=== PATIENT | male | born 1995 | race Caucasian/White ===

== ENCOUNTER 2017-01-14 17:16 | Emergency (ER) | payer BC, OTHER ==
[~2017-01-14] VITALS: Ht 182.9 cm; Wt 84.0 kg
[~2017-01-14 17:16] MED LIST: AMOX1TAB43 PO; NCDT7 TD
[2017-01-14 17:27] VITALS: Ht 182.9 cm; Wt 84.0 kg
[2017-01-14] MEDS ORDERED: SODIUM CHLORIDE 0.9% 1000ML 1,000 ML IV STA (19:32)
[2017-01-14] MEDS ORDERED: MoRPHine SULFATE 4 MG/ML 1 ML CARP\\VIAL IV STA (19:32)
[2017-01-14] MEDS ORDERED: ONDANSETRON INJ 2 MG/ML 2 ML VIAL IV STA (19:32)
--- NOTE | 2017-01-14 19:49 | EMERGENCY ROOM VISIT NOTE ---
History First contact with patient: 19:21 Chief Complaint: HEADACHE Stated Complaint: MIGRAINES History of Present Illness The patient is a 21 year old male who presents to the Emergency Room with complaints of headache. The patient states he has had a headache for the last 5 days. 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 He also has a history of carotid thrombus and stenting. The patient states that he gets headaches, typically four headaches each week. He states that this is the most severe headache he has ever had. He states the pain is on the right side of the head. He reports light sensitivity and nausea. He rates his discomfort a 5/10. He denies any fevers or chills. He denies any neck pain or neck stiffness. He denies any pain in his chest or trouble breathing. He denies any visual changes. He denies any numbness, tingling or weakness in the extremities. Review of Systems A 10 system review of systems was completed with positives and pertinent negatives listed in the HPI. Past Medical/Surgical History Medical Problems: (1) AVM (arteriovenous malformation) (2) VSD (ventricular septal defect) Social History Smoking Status: Former Smoker Drug Use: other Marital Status: single Occupation Status: [employer] Current/Historical Medications Scheduled Bupropion (Wellbutrin), 50 MG PO QAM Lamotrigine (Lamictal), 200 MG PO QAM Sertraline (Zoloft), 25 MG PO QAM Trazodone Hcl (Trazodone), 50 MG PO HS Scheduled PRN Oxycodone Ir (Roxicodone Ir), 1 TAB PO Q6 PRN for Pain Allergies Coded Allergies: Clindamycin (Verified Allergy, Mild, rash, 08/08/16) Midazolam (Verified Allergy, Unknown, aggitation, 08/08/16) Physical Exam Vital Signs Date Time Temp Pulse Resp B/P Pulse Ox O2 Delivery O2 Flow Rate FiO2 01/14/17 22:07 79 18 138/82 97 Room Air 01/14/17 21:40 71 18 108/63 99 Room Air 01/14/17 17:27 36.9 107 16 156/96 95 Room Air Physical Exam VITALS: Vitals are noted on the nurse's note and reviewed by myself. Vital signs stable. The patient is afebrile. GENERAL: This is a 21-year-old male, in no acute distress, nondiaphoretic, well- developed well-nourished. SKIN: The skin was without rashes, erythema, edema, or bruising. He does have scarring to the left side of the face. There is no tenting of the skin. Capillary reflex less than 2 seconds. HEAD: Normocephalic atraumatic. EARS: External auditory canals clear, tympanic membranes pearly sarabia without erythema or effusion bilaterally. EYES: Pupils equal round and reactive to light and accommodation. Conjunctivae without injection, sclerae without icterus. Extraocular movements intact. NOSE: Patent, turbinates without inflammation or discharge. No sinus tenderness. MOUTH: Mucous membranes moist. Tonsils are not enlarged. Pharynx without erythema or exudate. Uvula midline. Airway patent. Tongue does not deviate. NECK: Supple without nuchal rigidity. No lymphadenopathy. No thyromegaly. Cervical spine is nontender. No JVD. HEART: Regular rate and rhythm without murmurs gallops or rubs. LUNGS: Clear to auscultation bilaterally without wheezes, rales or rhonchi. No retractions or accessory muscle use. MUSCULOSKELETAL: No muscle atrophy, erythema, or edema noted. Full range of motion without joint tenderness in all extremities. Normal gait. Strength 5/5 throughout. NEURO: Patient was alert and oriented to person place and time. The patient has mild left-sided facial droop which is his baseline secondary to nerve damage from the AVM surgery. No focal neurological deficits. Medical Decision & Procedures ER Provider Diagnostic Interpretation: CT HEAD WITHOUT CONTRAST (CT) CLINICAL HISTORY: Severe headache COMPARISON STUDY: No previous studies for comparison. TECHNIQUE: Axial CT of the brain is performed from the vertex to the skull base. IV contrast was not administered for this examination. CT DOSE: 537.48 mGy.cm FINDINGS: No intra or extra-axial mass lesions are visualized. There is no CT evidence of acute cortical infarction. There is no evidence of midline shift. There is no acute hemorrhage. No calvarial fractures are visualized. There is an apparent stent in the region of the left carotid canal and cavernous left internal carotid. There are tiny radiopaque densities in the region of the posterior ethmoid sinus, and superior orbital apices. There is no evidence of pathologic ventricular dilatation. The hoop driving machine operator helper film reveals possible embolic material in the region of the nasopharynx. There is no evidence of acute sinusitis IMPRESSION: No acute intracranial findings. CT HEAD ANGIO WITH CONTRAST CLINICAL HISTORY: Severe headache. History of facial AVM. TECHNIQUE: CT angiography of the head was performed in a dynamic helical fashion during intravenous administration of 115 cc of Optiray 320. MIP imaging was performed. CT DOSE: COMPARISON STUDY: Noncontrast head CT dated 01/14/2017 FINDINGS: There are no lesion suspicious for aneurysm. There are no major intracranial branch occlusions. The dural venous sinuses appear patent. There are multiple foci of radiopaque embolic material within the nasopharynx and throughout the face particularly on the left. There is a probable carotid stent present. IMPRESSION: 1. Post ablation changes within the base and nasopharynx 2. Patent left internal carotid artery stent 3. No evidence of aneurysm. No evidence of dural venous sinus thrombosis. [~ rep ct add3]] CT NECK ANGIO WITH CONTRAST CLINICAL HISTORY: History of facial AVM. Severe headache. COMPARISON STUDY: No previous studies for comparison. TECHNIQUE: CT angiography was performed from the aortic arch to the skull base. MIP imaging was performed. The patient was scanned in a dynamic helical fashion during intravenous administration of 115 cc of Optiray 320. CT DOSE: 481.64 mGy.cm Technique: CT angiogram of the carotid and vertebral arteries was obtained using intravenous contrast and 3-D reconstruction. NASCET criteria was utilized. Findings: The right carotid revealed no evidence of aneurysm and no evidence of dissection. There is no evidence of hemodynamic significant stenosis. The left carotid revealed no evidence of hemodynamic significant stenosis. There is no evidence of aneurysm. There is no evidence of dissection. There is a patent stent in the region the left carotid canal. There is no evidence of hemodynamically significant vertebral stenosis. There is no evidence of vertebral dissection. There is artifact from extensive radiopaque embolic material present throughout nasopharyngeal and facial vessels. IMPRESSION: 1. No evidence of hemodynamically significant carotid or vertebral artery stenosis. No evidence of dissection. 2. Study compromised secondary to streak artifact from extensive radiopaque embolic material throughout nasopharyngeal and facial vessels Laboratory Results 01/14/17 19:45 Red Blood Count 5.48, Mean Corpuscular Volume 80.3, Mean Corpuscular Hemoglobin 27.2, Mean Corpuscular Hemoglobin Concent 33.9, Mean Platelet Volume 11.0, Neutrophils (%) (Auto) 52.9, Lymphocytes (%) (Auto) 32.4, Monocytes (%) (Auto) 11.4, Eosinophils (%) (Auto) 2.9, Basophils (%) (Auto) 0.2, Neutrophils # (Auto ) 2.96, Lymphocytes # (Auto) 1.81, Monocytes # (Auto) 0.64, Eosinophils # (Auto ) 0.16, Basophils # (Auto) 0.01 01/14/17 19:45 Test 01/14/17 19:45 White Blood Count 5.59 K/uL (4.8-10.8) Red Blood Count 5.48 M/uL (4.7-6.1) Hemoglobin 14.9 g/dL (14.0-18.0) Hematocrit 44.0 % (42-52) Mean Corpuscular Volume 80.3 fL (80-100) Mean Corpuscular Hemoglobin 27.2 pg (25-34) Mean Corpuscular Hemoglobin Concent 33.9 g/dl (32-36) Platelet Count 151 K/uL (130-400) Mean Platelet Volume 11.0 fL (7.4-10.4) Neutrophils (%) (Auto) 52.9 % Lymphocytes (%) (Auto) 32.4 % Monocytes (%) (Auto) 11.4 % Eosinophils (%) (Auto) 2.9 % Basophils (%) (Auto) 0.2 % Neutrophils # (Auto) 2.96 K/uL (1.4-6.5) Lymphocytes # (Auto) 1.81 K/uL (1.2-3.4) Monocytes # (Auto) 0.64 K/uL (0.11-0.59) Eosinophils # (Auto) 0.16 K/uL (0-0.5) Basophils # (Auto) 0.01 K/uL (0-0.2) RDW Standard Deviation 42.5 fL (36.4-46.3) RDW Coefficient of Variation 14.5 % (11.5-14.5) Immature Granulocyte % (Auto) 0.2 % Immature Granulocyte # (Auto) 0.01 K/uL (0.00-0.02) Anion Gap 5.0 mmol/L (3-11) Est Creatinine Clear Calc Drug Dose 136.5 ml/min Estimated GFR () 133.8 Estimated GFR (Non- 115.4 BUN/Creatinine Ratio 16.3 (10-20) Calcium Level 9.2 mg/dl (8.5-10.1) Total Bilirubin 0.6 mg/dl (0.2-1) Aspartate Amino Transf (AST/SGOT) 21 U/L (15-37) Alanine Aminotransferase (ALT/SGPT) 30 U/L (12-78) Alkaline Phosphatase 69 U/L (45-117) Total Protein 7.0 gm/dl (6.4-8.2) Albumin 4.0 gm/dl (3.4-5.0) Globulin 3.0 gm/dl (2.5-4.0) Albumin/Globulin Ratio 1.3 (0.9-2) Medications Administered Medications (Trade) Dose Ordered Sig/Nestor Route Start Time Stop Time Status Last Admin Dose Admin Morphine Sulfate (MoRPHine SULFATE INJ) 4 mg NOW STAT IV 01/14/17 19:32 01/14/17 19:33 DC 01/14/17 20:12 4 MG Ondansetron HCl (Zofran Inj) 4 mg NOW STAT IV 01/14/17 19:32 01/14/17 19:33 DC 01/14/17 20:11 4 MG Prochlorperazine Edisylate (Compazine Inj) 10 mg NOW STAT IV 01/14/17 21:03 01/14/17 21:04 DC 01/14/17 21:32 10 MG Diphenhydramine HCl (Benadryl Inj) 25 mg NOW STAT IV 01/14/17 21:03 01/14/17 21:04 DC 01/14/17 21:32 25 MG ED Course The patient was seen and examined. Previous visits were reviewed. The patient does not have a fever or leukocytosis. He does not have any significant electrolyte abnormalities. CT imaging was obtained as above. There is no acute findings. The patient was initially given 4 mg IV morphine and 4 mg IV Zofran with only minimal improvement in his symptoms. He was then given 10 mg IV Compazine and 25 mg IV Benadryl. He was sleeping and stated he was feeling slightly better. He felt that he was ready to go home. I did discuss the possibility of performing lumbar puncture if this indeed the worst headache of his life but he declines. He did ask for pain medication to have at home. I did review the prescription drug monitoring website. He has not had any narcotics filled recently. The patient should follow-up with neurology for further evaluation and management. He should return with any worsening symptoms. The case was discussed with who agrees with the assessment and treatment plan. Medical Decision The differential diagnosis includes: head or neck trauma, cerebrovascular disorders, intracranial lesions, infection,transient ischemic attack (TIA), CVA , seizure, syncope, intracranial mass, intracranial bleeding and vestibular disorders, among others [place] Drug Monitoring Program Search Results: patient reviewed within database, no issues identified Impression Primary Impression: Headache Departure Information Dispostion Home / Self-Care Condition GOOD Prescriptions Oxycodone Ir (Roxicodone Ir) 5 Mg Tab 1 TAB PO Q6 Y for Pain, #10 TAB For Initial Treatment Prov: Staci Sky PA-C 01/14/17 Referrals [facility] (PCP) Sadi Rosario M.D. Patient Instructions ED Headache Migraine, My [facility] Additional Instructions Oxy IR 1-2 tablets every 4-6 hrs as needed for worse pain. No driving or alcohol use with Oxy IR. Follow-up with [facility] services and/or neurology for further evaluation and management if headaches persist Return with any fevers or worsening symptoms Problem Qualifiers Primary Impression: Headache
[2017-01-14 19:54] LABS: BASO % 0.2 %; BASO ABS # 0.01 K/uL (0-0.2); COMPLETE YES; EOS % 2.9 %; IG% 0.2 %; LYMPH % 32.4 %; LYMPH ABS # 1.81 K/uL (1.2-3.4); MEAN CELL VOLUME 80.3 fL (80-100); MEAN CORPUSCULAR HEMOGLOBIN 27.2 pg (25-34); MEAN CORPUSCULAR HGB CONC 33.9 g/dl (32-36); MONO % 11.4 %; NEUT % 52.9 %; PLATELET COUNT 151 K/uL (130-400); RED BLOOD COUNT 5.48 M/uL (4.7-6.1); WHITE BLOOD COUNT 5.59 K/uL (4.8-10.8)
[2017-01-14 20:16] LABS: BUN/CREATININE RATIO 16.3 (10-20); CALCIUM 9.2 mg/dl (8.5-10.1); CREATININE 0.94 mg/dl (0.60-1.40); POTASSIUM 4.1 mmol/L (3.5-5.1)
[2017-01-14 20:18] LABS: ALB/GLOB RATIO 1.3 (0.9-2)
--- NOTE | 2017-01-14 20:42 | DIAGNOSTIC IMAGING REPORT ---
CT HEAD WITHOUT CONTRAST (CT) CLINICAL HISTORY: Severe headache COMPARISON STUDY: No previous studies for comparison. TECHNIQUE: Axial CT of the brain is performed from the vertex to the skull base. IV contrast was not administered for this examination. CT DOSE: 537.48 mGy.cm FINDINGS: No intra or extra-axial mass lesions are visualized. There is no CT evidence of acute cortical infarction. There is no evidence of midline shift. There is no acute hemorrhage. No calvarial fractures are visualized. There is an apparent stent in the region of the left carotid canal and cavernous left internal carotid. There are tiny radiopaque densities in the region of the posterior ethmoid sinus, and superior orbital apices. There is no evidence of pathologic ventricular dilatation. The weapons mechanic film reveals possible embolic material in the region of the nasopharynx. There is no evidence of acute sinusitis IMPRESSION: No acute intracranial findings. Electronically signed by: Mane Reynolds M.D. 01/14/2017 8:41 PM Dictated Date/Time: 01/14/2017 8:37 PM
[2017-01-14] MEDS ORDERED: OPTIRAY 320 IV PRN (21:00)
[2017-01-14] MEDS ORDERED: DiphenhydrAMINE HCL 50 MG/ML VIAL IV STA (21:03)
[2017-01-14] MEDS ORDERED: PROCHLORPERAZINE 5 MG/ML 2 ML VIAL IV STA (21:03)
--- NOTE | 2017-01-14 22:14 | DIAGNOSTIC IMAGING REPORT ---
CT HEAD ANGIO WITH CONTRAST CLINICAL HISTORY: Severe headache. History of facial AVM. TECHNIQUE: CT angiography of the head was performed in a dynamic helical fashion during intravenous administration of 115 cc of Optiray 320. MIP imaging was performed. CT DOSE: COMPARISON STUDY: Noncontrast head CT dated 01/14/2017 FINDINGS: There are no lesion suspicious for aneurysm. There are no major intracranial branch occlusions. The dural venous sinuses appear patent. There are multiple foci of radiopaque embolic material within the nasopharynx and throughout the face particularly on the left. There is a probable carotid stent present. IMPRESSION: 1. Post ablation changes within the base and nasopharynx 2. Patent left internal carotid artery stent 3. No evidence of aneurysm. No evidence of dural venous sinus thrombosis. Electronically signed by: Mnae Reynolds M.D. 01/14/2017 10:12 PM Dictated Date/Time: 01/14/2017 10:08 PM
--- NOTE | 2017-01-14 22:17 | DIAGNOSTIC IMAGING REPORT ---
CT NECK ANGIO WITH CONTRAST CLINICAL HISTORY: History of facial AVM. Severe headache. COMPARISON STUDY: No previous studies for comparison. TECHNIQUE: CT angiography was performed from the aortic arch to the skull base. MIP imaging was performed. The patient was scanned in a dynamic helical fashion during intravenous administration of 115 cc of Optiray 320. CT DOSE: 481.64 mGy.cm Technique: CT angiogram of the carotid and vertebral arteries was obtained using intravenous contrast and 3-D reconstruction. NASCET criteria was utilized. Findings: The right carotid revealed no evidence of aneurysm and no evidence of dissection. There is no evidence of hemodynamic significant stenosis. The left carotid revealed no evidence of hemodynamic significant stenosis. There is no evidence of aneurysm. There is no evidence of dissection. There is a patent stent in the region the left carotid canal. There is no evidence of hemodynamically significant vertebral stenosis. There is no evidence of vertebral dissection. There is artifact from extensive radiopaque embolic material present throughout nasopharyngeal and facial vessels. IMPRESSION: 1. No evidence of hemodynamically significant carotid or vertebral artery stenosis. No evidence of dissection. 2. Study compromised secondary to streak artifact from extensive radiopaque embolic material throughout nasopharyngeal and facial vessels Electronically signed by: Maen Reynolds M.D. 01/14/2017 10:16 PM Dictated Date/Time: 01/14/2017 10:13 PM
[2017-01-14] MEDS ORDERED: OXYCODONE IR HOME PACK PO ONE (22:30)
[2017-01-14] MEDS ORDERED: OXYC1TAB3 PO (22:30)
[2017-01-14 23:12] VITALS: BP 131/79; PULSE 95; TEMP 36.9; O2SAT 99
[2017-01-29] MEDS ORDERED: KETO10TA PO (14:26)
[2017-01-29] MEDS ORDERED: TRAZ50TA35 PO (16:12)
[2017-01-29] MEDS ORDERED: LAMO200T38 PO (16:13)
[2017-01-29] MEDS ORDERED: BUPR-83 PO (16:14)
[2017-01-29] MEDS ORDERED: SERT25TA PO (16:15)
== END 2017-01-14 23:14 | disposition home or self-care (01) ==
LOC: C.EDB 17:17
DX: R51 Headache (principal); H53.8 Other visual disturbances; R11.0 Nausea; Z87.891 Personal history of nicotine dependence; Q27.30 Arteriovenous malformation, site unspecified

== ENCOUNTER 2017-01-26 14:07 | Emergency (ER) | payer OTHER ==
[~2017-01-26] VITALS: Ht 182.9 cm; Wt 83.6 kg
[~2017-01-26 14:07] MED LIST changes: -AMOX1TAB43 PO; -NCDT7 TD; +OXYC1TAB3 PO
[2017-01-26 14:14] VITALS: TEMP 36.6; Ht 182.9 cm; Wt 83.6 kg
[2017-01-26] MEDS ORDERED: OXYC1TAB3 PO (15:17)
--- NOTE | 2017-01-26 15:19 | EMERGENCY ROOM VISIT NOTE ---
History First contact with patient: 14:22 Chief Complaint: HEADACHE Stated Complaint: MIRGRAINE History of Present Illness The patient is a 21 year old male who presents to the Emergency Room via private vehicle with complaints of "headache". The patient has had a headache for the past 2 days. He states that he was seen here on January 14, where he had a thorough workup for a new onset headache. He states that he was discharged home with oxycodone and been doing well with only mild headaches until 3 days ago he started again. He is concerned that maybe from a potential infection in the back of his mouth. He states that he is making a dentist appointment in the near future. He states that at 3 AM, 2 nights ago he awoke with a severe headache similar to when he presented here on the . He is attempting to establish an appointment with a neurologist as well. He states these headaches do seem to be new, however there has been no worsening or change or new onset of symptoms since he was evaluated here the . He states he is here today because he was seen at [facility] who indicated they could not refill the oxycodone of which she stated provided him relief. He notes that the headache is usually on the right side of his head near the right buddhist and right ear. He states is the same location as when he was seen here on the . His light sensitivity in the right eye, he denies fevers, chills, weakness or speech troubles. Review of Systems A complete 10-point Review of Systems was discussed with the patient, with pertinent positives and negatives listed in the History of Present Illness. All remaining Review of Systems questions can be considered negative unless otherwise specified. Past Medical/Surgical History Medical Problems: (1) AVM (arteriovenous malformation) (2) VSD (ventricular septal defect) Social History Smoking Status: Never Smoker Drug Use: other Marital Status: single Occupation Status: [employer] Current/Historical Medications Scheduled Bupropion (Wellbutrin), 50 MG PO QAM Lamotrigine (Lamictal), 200 MG PO QAM Sertraline (Zoloft), 25 MG PO QAM Trazodone Hcl (Trazodone), 50 MG PO HS Scheduled PRN Ketorolac Tromethamine (Toradol), 1 TAB PO Q6H PRN for Pain Oxycodone Ir (Roxicodone Ir), 1-2 TAB PO Q4H PRN for Pain Allergies Coded Allergies: Zolpidem (Unverified Allergy, Severe, anxiety, 01/26/17) Clindamycin (Verified Allergy, Mild, rash, 01/26/17) Midazolam (Verified Allergy, Unknown, aggitation, 01/26/17) Physical Exam Vital Signs Date Time Temp Pulse Resp B/P Pulse Ox O2 Delivery O2 Flow Rate FiO2 01/26/17 15:38 67 18 117/72 99 01/26/17 14:14 36.6 97 18 131/95 100 Room Air Physical Exam VITAL SIGNS - Vital signs and nursing notes were reviewed. Afebrile, normotensive, non-tachycardic and is saturating well on room air 100%. GENERAL -21-year-old male appearing his stated age who is in no acute distress. Communicates well with provider and answers questions appropriately. SKIN - Without rashes. No petechial rashes. HEAD - NC/AT. EYES - PERRL with EOMI bilaterally. Sclera anicteric. Palpebral conjunctiva pink and moist with no injection noted. EARS - No deformities of external structures noted on gross examination bilaterally. No pain elicited with palpation of the tragus bilaterally. External auditory canals without discharge or otorrhea. Tympanic membranes pearly sarabia without retraction or bulging. No fluid or purulent material visualized behind the TM. Handle of malleus, umbo, cone of light, pars tensa/ flaccid all easily visualized. NOSE - Midline and without cyanosis. No epistaxis or purulent drainage noted. Septum midline without deviation or septal hematoma noted. MOUTH/OROPHARYNX - Without perioral cyanosis. Buccal mucosa pink and moist and without leukoplakia. Tongue midline with equal elevation of palate bilaterally. No tonsillar hypertrophy, erythema, or exudates noted. Fair dentition noted. No evidence of intraoral infection. NECK - Neck with FROM. Supple to palpation. No lymphadenopathy noted. No nuchal rigidity. No meningismus or signs of encephalitis. LUNGS - Chest wall symmetric without accessory muscle use, intercostals retractions, or central cyanosis. Normal vesicular breath sounds CTA B/L. No wheezes, rales, or rhonchi appreciated. CARDIAC - RRR with S1/S2. No murmur, rubs, or gallops appreciated. EXTREMITIES - No clubbing or peripheral cyanosis. No pretibial edema present. Vascular intact. +5/5 strength noted in UE/LE bilaterally. NEUROLOGIC - Cranial nerves II through XII grossly intact. Sensory intact to light touch throughout. Patellar reflexes +2/4. PSYCH - A&Ox3 and cooperates fully with examiner. Pt is very pleasant and interacts well with examiner. Medical Decision & Procedures Medical Decision Patient was seen and evaluated as above. After obtaining a thorough history and physical examination an extensive discussion was had with the patient regarding his current condition versus when he presented here on the . We thoroughly reviewed his imaging and lab work at that time. The patient is experiencing identical symptoms to when he was here in the , and this is not the worst headache of his life. He states he currently he is experiencing a very minimal headache he would potentially just like a refill of the oxycodone temporarily until he can see the neurologist for definitive management. I did thoroughly review the CT scan of the head with contrast and without as well as the neck with contrast. The angiograms were unremarkable for acute process. His lab work also did not reveal any emergent process. The patient likely appears well and does not have any neurologic deficits. I do believe the patient can be discharged home with a short prescription but did want to help expedite his neurologic appointment by having our case specialist assist by calling to establish appointment Saturday. He was educated upon worrisome symptoms which to return, had questions or purulent discharge and was discharged home in good condition. In the evaluation and treatment of this patient, the following differential diagnoses were considered: Concussion, Contrecoup Injury, Brain Tumor, Depression, Encephalitis, Hypothyroidism, Meningitis, CVA, TIA, Migraine, Cluster Headache, Intracranial Abnormality, Intracranial Hemorrhage, Subdural Hematoma, Subarachnoid Hemorrhage, Hydrocephalus. [place] Drug Monitoring Program Search Results: patient reviewed within database, no issues identified Impression Primary Impression: Headache Departure Information Dispostion Home / Self-Care Condition GOOD Prescriptions Oxycodone Ir (Roxicodone Ir) 5 Mg Tab 1-2 TAB PO Q4H Y for Pain, #15 TAB For Initial Treatment Prov: Oscar Rueda PA-C 01/26/17 Referrals [facility] (PCP) Yves Kuo M.D. (MEDICINE) Patient Instructions My [facility] Additional Instructions You have been treated in the Emergency Department for a Headache. You have been prescribed Oxy IR to be used for pain control. This is a narcotic medication. You cannot drive or consume alcohol while on this medicine. This medicine should only be used for pain that cannot be controlled with over-the- counter pain medicines. For pain control, you can use the following [id number] medicines (if >12 yo): - Regular strength (325mg/tab) Tylenol (acetaminophen) 2 tabs every 4-6 hours as needed. Do not exceed 12 tablets in a 24 hour period. Avoid taking more than 3 grams (3000 mg) of Tylenol per day. This includes any other sources of acetaminophen you may take on a regular basis. - Regular strength (200 mg/tab) Advil (ibuprofen) 1-2 tabs every 4-6 hours as needed. Do not exceed a dose of 3200 mg per day. (DO NOT TAKE WITH THE TORADOL) You should relax in a quiet, dark place for the rest of the day. Avoid any possible triggers including: cigarette smoke, caffeine, nicotine, chocolate, wine, beer, loud noises or music, or bright lights. Our case specialist are going to call a neurologist for you first thing Saturday. Please expect their call Saturday. If you do not hear from us by Saturday evening please call [phone]. Return to the Emergency Department if your current symptoms worsen despite treatment course outlined above, or if you develop any of the following symptoms : intractable pain despite aforementioned treatment course, visual disturbances , loss of vision, unilateral weakness or facial drooping, slurring of speech, loss of coordination, or loss of consciousness. Please return to the emergency department with any new/concerning symptoms
[2017-01-26 15:38] VITALS: BP 117/72; PULSE 67; O2SAT 99
[2017-01-29] MEDS ORDERED: KETO10TA PO (14:26)
[2017-01-29] MEDS ORDERED: TRAZ50TA35 PO (16:12)
[2017-01-29] MEDS ORDERED: LAMO200T38 PO (16:13)
[2017-01-29] MEDS ORDERED: BUPR-83 PO (16:14)
[2017-01-29] MEDS ORDERED: SERT25TA PO (16:15)
== END 2017-01-26 15:40 | disposition home or self-care (01) ==
LOC: C.EDB 14:10 → C.EDD 15:40
DX: R51 Headache (principal); Z79.899 Other long term (current) drug therapy

== ENCOUNTER 2017-01-29 17:43 | Emergency (ER) | payer OTHER ==
[~2017-01-29] VITALS: Ht 182.9 cm; Wt 84.1 kg
[~2017-01-29 17:43] MED LIST changes: +BUPR-83 PO; +KETO10TA PO; +LAMO200T38 PO; +SERT25TA PO; +TRAZ50TA35 PO
[2017-01-29 17:59] VITALS: TEMP 36.7; Ht 182.9 cm; Wt 84.1 kg
[2017-01-29] MEDS ORDERED: DiphenhydrAMINE HCL 50 MG/ML VIAL IM STA (18:48)
[2017-01-29] MEDS ORDERED: PROCHLORPERAZINE 5 MG/ML 2 ML VIAL IM STA (18:48)
[2017-01-29] MEDS ORDERED: OXYCODONE IR HOME PACK PO STA (20:53)
[2017-01-29] MEDS ORDERED: METH4PAK PO (20:54)
[2017-01-29] MEDS ORDERED: OXYC1TAB3 PO (20:54)
--- NOTE | 2017-01-29 20:56 | EMERGENCY ROOM VISIT NOTE ---
History First contact with patient: 18:15 Chief Complaint: HEADACHE Stated Complaint: MIGRAINES History of Present Illness The patient is a 21 year old male who presents to the Emergency Room via private vehicle with complaints of "migraines". The patient was in the emergency department recently 2 times for previous. The patient states that today he was to see the dentist and [facility]. He states that he was last seen here on January 26, and since then has had waxing and waning of the same type of headache he presented with before. He notes this is not the worse headache of his life. He states the dentist did not offer any concern for dental ideologies. He states that he has not been able to follow-up with neurology as he had to have an official referral from [facility]. He states that he was there today. He is waiting a call from the neurologist at this time. He states he came here because he is not sure where to turn. He states that the OxyIR was helping him but he has now run out. He states that the headache he is expressing at this time is bad, but not the worst of his life. He states that he has taken Toradol today. Since he was seen here on the first, he developed a headache all day Saturday, and then took 2 of the OxyIR with relief. He states that it is been transient since then. He missed class yesterday because of his headaches. He is had trouble sleeping at night. He did take Tylenol PM recently which helped him sleep. The patient states that the current headache he rates as an 8-9/10 on the right side of his head which is identical to previous headaches. He denies any recent trauma or injury to the head, nausea, vomiting, fevers, chills. He states that he does have light and noise sensitivity. He has trouble watching TV and using the computer secondary to irritation. This current headache began 1.5 hours ago and was of gradual onset. Review of Systems A complete 10-point Review of Systems was discussed with the patient, with pertinent positives and negatives listed in the History of Present Illness. All remaining Review of Systems questions can be considered negative unless otherwise specified. Past Medical/Surgical History Medical Problems: (1) AVM (arteriovenous malformation) (2) VSD (ventricular septal defect) Family History No pertinent at this time. Social History Smoking Status: Former Smoker Drug Use: other Marital Status: single Occupation Status: [employer] student Current/Historical Medications Scheduled Bupropion (Wellbutrin), 50 MG PO QAM Lamotrigine (Lamictal), 200 MG PO QAM Methylprednisolone (Medrol Dosepak), 0 PO DAILY Sertraline (Zoloft), 25 MG PO QAM Trazodone Hcl (Trazodone), 50 MG PO HS Scheduled PRN Ketorolac Tromethamine (Toradol), 1 TAB PO Q6H PRN for Pain Oxycodone Ir (Roxicodone Ir), 1-2 TAB PO Q4H PRN for Pain Oxycodone Ir (Roxicodone Ir), 1-2 TAB PO Q4H PRN for Pain Allergies Coded Allergies: Zolpidem (Unverified Allergy, Severe, anxiety, 01/29/17) Clindamycin (Verified Allergy, Mild, rash, 01/29/17) Midazolam (Verified Allergy, Unknown, aggitation, 01/29/17) Physical Exam Vital Signs Date Time Temp Pulse Resp B/P Pulse Ox O2 Delivery O2 Flow Rate FiO2 01/29/17 21:03 76 16 118/59 98 01/29/17 20:42 76 16 118/59 98 Room Air 01/29/17 17:59 36.7 89 18 123/81 96 Room Air Physical Exam VITAL SIGNS - Vital signs and nursing notes were reviewed. Patient is afebrile , normotensive, non-tachycardic and is saturating well on room air 96%. GENERAL -21-year-old male appearing his stated age who is in no acute distress. Communicates well with provider and answers questions appropriately. SKIN - Without rashes. No petechial rashes. HEAD - NC/AT. EYES - Sclera anicteric. Palpebral conjunctiva pink and moist with no injection noted. MOUTH/OROPHARYNX - Without perioral cyanosis. NECK - Neck with FROM. No Meningismus. NEUROLOGIC - Cranial nerves II through XII grossly intact. PSYCH - A&Ox3 and cooperates fully with examiner. Pt is very pleasant and interacts well with examiner. Medical Decision & Procedures Medications Administered Medications (Trade) Dose Ordered Sig/Nestor Route Start Time Stop Time Status Last Admin Dose Admin Diphenhydramine HCl (Benadryl Inj) 50 mg NOW STAT IM 01/29/17 18:48 01/29/17 18:49 DC 01/29/17 19:12 50 MG Prochlorperazine Edisylate (Compazine Inj) 10 mg NOW STAT IM 01/29/17 18:48 01/29/17 18:49 DC 01/29/17 19:12 10 MG Oxycodone HCl (Roxicodone Immediate Rel 5MG Home Pack) 1 homepack UD STAT PO 01/29/17 20:53 01/29/17 20:54 DC 01/29/17 21:03 [facility] Medical Decision Patient was seen and evaluated as above. I am familiar with the patient case as I treated him previously. The patient presents essentially requesting a refill of the oxycodone prescription. He was checked in the [employer] drug monitoring system and no red flags were identified. I do believe the patient is experiencing headaches. The patient was to follow up with neurology from previous visit but it appears that he is not been able to follow up yet at this point. apprenticeship training representative did also talk with me and state that they're trying everything they can to help him with the appointment. I talked with the patient and there was no change in his headache from previous. He had no neurologic deficits on exam. There is no concerning presentation to these headaches at this time. I do not believe that continued opioid use is appropriate for the treatment of headaches, but as a bridge to help him until he can be seen by neurologist for further evaluation and management do believe that it may be appropriate. The case was thoroughly discussed with my attending. I did discussthe case with the communication technician neurologist, Dr. Ortiz, who offered that I may use a Medrol Dosepak, and have case management call to establish the earliest appointment for the patient. I do believe this is appropriate and although similar was tried on previous visit certainly believe that it is appropriate. The patient will be discharged home with a short term supply of OxyIR as well as a Medrol Dosepak. For his symptoms today, he already taken Toradol therefore I decided to try intramuscular Phenergan and Benadryl. This was 25 and 50 mg respectively. Patient was reevaluated and was experiencing excellent relief. For the short-term, he will be discharged home on OxyIR as well as a Medrol Dosepak and is to follow-up with neurology. I again do not believe that long-term prescriptions of OxyIR for any opiates are appropriate, nor do I want to create serotonin syndrome. The patient was thoroughly educated upon the plan of care, and he is to expect a phone call tomorrow. If he does not receive a phone call from either our director of casework department or neurology he is to return. He was educated upon worrisome symptoms which to return, had questions answered prior to discharge, and was discharged home in good condition. In the evaluation and treatment of this patient, the following differential diagnoses were considered: Migraine Headache, Intracranial Hemorrhage, Subdural Hematoma, Subarachnoid Hemorrhage, Cerebral Aneurysm, Temporal/Giant Cell Arteritis, Tension Headache, Meningitis, Encephalitis, or Hydrocephalus. [place] Drug Monitoring Program Search Results: patient reviewed within database, no issues identified Impression Primary Impression: Headache Departure Information Dispostion Home / Self-Care Condition GOOD Prescriptions Oxycodone Ir (Roxicodone Ir) 5 Mg Tab 1-2 TAB PO Q4H Y for Pain, #15 TAB For Initial Treatment Prov: Oscar Rueda PA-C 01/29/17 Methylprednisolone (MEDROL DOSEPAK) 4 Mg Alexis 0 PO DAILY, #1 PKT Prov: Oscar Rueda PA-C 01/29/17 Referrals [facility] (PCP) Camryn Rascon D.O. Patient Instructions My [facility] Additional Instructions You have been treated in the Emergency Department for a Headache. You have been prescribed Oxy IR to be used for pain control. This is a narcotic medication. You cannot drive or consume alcohol while on this medicine. This medicine should only be used for pain that cannot be controlled with over-the- counter pain medicines. You have been prescribed a Medrol Dosepak. Take this medication as prescribed. You should take the COMPLETE 6-day course of this medication. This is an anti- inflammatory medicine that will help to minimize your symptoms. For pain control, you can use the following [id number] medicines (if >12 yo): - Regular strength (325mg/tab) Tylenol (acetaminophen) 2 tabs every 4-6 hours as needed. Do not exceed 12 tablets in a 24 hour period. Avoid taking more than 4 grams (4000 mg) of Tylenol per day. This includes any other sources of acetaminophen you may take on a regular basis. - Regular strength (200 mg/tab) Advil (ibuprofen) 1-2 tabs every 4-6 hours as needed. Do not exceed a dose of 3200 mg per day. You should relax in a quiet, dark place for the rest of the day. Avoid any possible triggers including: cigarette smoke, caffeine, nicotine, chocolate, wine, beer, loud noises or music, or bright lights. As we discussed you should be expecting a phone call from the neurologist office and from our department regarding an appointment for neurologist. If you do not receive a phone call back tomorrow midafternoon please call the emergency department back at [phone] Return to the Emergency Department if your current symptoms worsen despite treatment course outlined above, or if you develop any of the following symptoms : intractable pain despite aforementioned treatment course, visual disturbances , loss of vision, unilateral weakness or facial drooping, slurring of speech, loss of coordination, or loss of consciousness. Please return to emergency department with any new/concerning symptoms.
[2017-01-29 21:03] VITALS: BP 118/59; PULSE 76; O2SAT 98
== END 2017-01-29 21:04 | disposition home or self-care (01) ==
LOC: C.EDB 17:43 → C.EDD 21:04
DX: R51 Headache (principal); Z87.891 Personal history of nicotine dependence; Z79.899 Other long term (current) drug therapy

== ENCOUNTER → 2017-02-06 | Outpatient (CLI) | payer OTHER ==
[~2017-02-06] MED LIST changes: +AMIT10TA6 PO; +GABA-113 PO; +GADAVIST IV PRN; +METH4PAK PO
--- NOTE | 2017-02-06 16:01 | DIAGNOSTIC IMAGING REPORT ---
MRI brain BRAIN COMBO FOR TRIGEMINAL CLINICAL HISTORY: FACIAL PAIN; HEADACHE; NEURALGIA TECHNIQUE: MRI multi axial acquisition COMPARISON STUDY: None FINDINGS: Low-lying cerebellar tonsils. Ventricular system is midline. No evidence for an acute ischemic focus. No evidence for abnormal postcontrast enhancement. Structures the sella. Sellar region are unremarkable. Internal artery canals are symmetric. IMPRESSION: 1. Low-lying cerebellar tonsils. 2. Otherwise negative MRI of the brain. Electronically signed by: Garrett Solitario M.D. 02/06/2017 3:59 PM Dictated Date/Time: 02/06/2017 3:56 PM
== END | disposition home or self-care (01) ==
LOC: C.OPENMRI 14:22
PROVIDERS: ATTEND Physician Assistant
DX: R51 Headache (principal); M79.2 Neuralgia and neuritis, unspecified

== ENCOUNTER → 2017-02-12 | Outpatient (CLI) | payer OTHER ==
[~2017-02-12] MED LIST changes: -GADAVIST IV PRN; -METH4PAK PO
[2017-02-12 18:41] LABS: LYME DISEASE AB IGG NEG (NEG)
[2017-02-12 18:51] LABS: LYME DISEASE AB IGM EQUIVOCAL (NEG)
[2017-02-19 10:10] LABS: 23KDIGM BAND NONREACTIVE (NONREACTIVE); 39KDIGM BAND NONREACTIVE (NONREACTIVE); 41KDIGM BAND NONREACTIVE (NONREACTIVE)
== END | disposition home or self-care (01) ==
LOC: C.LABBC 12:34
PROVIDERS: ATTEND Physician Assistant
DX: R51 Headache (principal); M79.2 Neuralgia and neuritis, unspecified

== ENCOUNTER 2017-08-11 15:34 | Emergency (ER) | payer OTHER ==
[~2017-08-11] VITALS: Ht 182.9 cm; Wt 78.2 kg
[~2017-08-11 15:34] MED LIST changes: -AMIT10TA6 PO; -GABA-113 PO; -OXYC1TAB3 PO
[2017-08-11 15:41] VITALS: TEMP 36.9; Ht 182.9 cm; Wt 78.2 kg
[2017-08-11] MEDS ORDERED: GABA-113 PO (16:03)
[2017-08-11] MEDS ORDERED: AMIT10TA6 PO (16:22)
--- NOTE | 2017-08-11 16:25 | EMERGENCY ROOM VISIT NOTE ---
ED Visit Note First contact with patient: 15:57 CHIEF COMPLAINT: Chronic nerve pain, trigeminal neuralgia HISTORY OF PRESENT ILLNESS: This 22-year-old male patient presents to the emergency department, ambulatory, complaining of chronic facial pain related to trigeminal neuralgia. The patient states he is under the care of a neurosurgeon in [place] who diagnosed the problem. He states he has been having nerve block injections performed. He states his last injection was the beginning of the summer. He is a [employer] student, does not have any local providers to manage his pain. The patient states he was here 3 times last year prior to the problem being diagnosed and he was given prescriptions for narcotics. He states he feels that the nerve block has worn off and is hoping to get a prescription for narcotics to help him sleep at night. The patient states he has been speaking with his surgeon in [place], who states he would like to start the patient on amitriptyline. He states the surgeon has not had time to this on the prescription and will not be able to do it for another 2 weeks. The patient is describing pain which is the same as his chronic pain in the right face and jaw. He describes it as pulsating and throbbing, worse with opening the mouth. He rates the pain 7/10. He denies any numbness, tingling, decreased sensation, nausea, vomiting, fever, neck pain. REVIEW OF SYSTEMS: A review of systems was performed with positives and pertinent negatives listed in the history of present illness. All other systems were reviewed and are negative. ALLERGIES: Clindamycin, midazolam, zolpidem MEDICATIONS: Please see list. I did personally review the patient's medication list with him at bedside. PMH: AVM, depression, insomnia, trigeminal neuralgia SOCIAL HISTORY: The patient is a [employer] student. He is from [place]. The patient lives locally with his roommate. He denies drug, alcohol use. The patient states he smokes approximally 5 cigarettes per day. PHYSICAL EXAM: VITALS: Vitals are noted on the nurse's note and reviewed by myself. Vital signs stable. GENERAL: This is a 22-year-old white male, in no acute distress, nondiaphoretic , well-developed well-nourished. SKIN: The skin was without rashes, erythema, edema, or bruising. There is no tenting of the skin. Capillary reflex less than 2 seconds. HEAD: Normocephalic atraumatic. EARS: External auditory canals clear, tympanic membranes pearly sarabia without erythema or effusion bilaterally. EYES: Pupils equal round and reactive to light and accommodation. Conjunctivae without injection, sclerae without icterus. Extraocular movements intact. NOSE: Patent, turbinates without inflammation or discharge. No sinus tenderness. MOUTH: Mucous membranes moist. Tonsils are not enlarged. Pharynx without erythema or exudate. Uvula midline. Airway patent. Tongue does not deviate. NECK: Supple without nuchal rigidity. No lymphadenopathy. No thyromegaly. Cervical spine is nontender. No JVD. HEART: Regular rate and rhythm without murmurs gallops or rubs. LUNGS: Clear to auscultation bilaterally without wheezes, rales or rhonchi. No dullness to percussion. No retractions or accessory muscle use. MUSCULOSKELETAL: No muscle atrophy, erythema, or edema noted. Full range of motion without joint tenderness in all extremities. No tenderness to palpation. Normal gait. Strength 5/5 throughout. NEURO: Patient was alert and oriented to person place and time. Normal sensation to light and sharp touch. No focal neurological deficits. EMERGENCY DEPARTMENT COURSE: Discussion with patient regarding proper management of chronic pain. I discussed with him that we do not manage chronic pain here in the emergency department, especially as he is under the care of a specialist. Carotid patient with multiple options regarding his care and allowed him to make a decision. I offered to increase his dose of gabapentin, switch his gabapentin to Cymbalta, or at the amitriptyline at a low dose, as his surgeon was going to do anyway. The patient decides to go with the amitriptyline at this time. I encouraged him to follow up with [facility] or another local provider regarding his chronic pain management while here in school. Prior to exiting the room, the patient asks if tramadol is a narcotic. I advised him that it was, and that narcotics are not the most appropriate treatment for chronic nerve pain. The patient verbalizes his understanding. The patient was in agreement with the assessment and plan at this time, was discharged home in good condition. DIFFERENTIAL DIAGNOSIS: Trigeminal neuralgia, chronic pain, meningitis, lymphedema, lymphangitis, Acute sinusitis, upper respiratory infection, fracture , TMJ, malignancy, and others DIAGNOSIS: Chronic pain, trigeminal neuralgia Current/Historical Medications Scheduled Amitriptyline Hcl (Elavil), 1 TAB PO HS Bupropion (Wellbutrin), 50 MG PO QAM Gabapentin (Neurontin), 300 MG PO TID Lamotrigine (Lamictal), 200 MG PO QAM Sertraline (Zoloft), 25 MG PO QAM Trazodone Hcl (Trazodone), 50 MG PO HS Allergies Coded Allergies: Zolpidem (Unverified Allergy, Severe, anxiety, 08/11/17) Clindamycin (Verified Allergy, Mild, rash, 08/11/17) Midazolam (Verified Allergy, Unknown, aggitation, 08/11/17) Vital Signs Date Time Temp Pulse Resp B/P (MAP) Pulse Ox O2 Delivery O2 Flow Rate FiO2 08/11/17 16:34 82 20 111/72 96 08/11/17 15:41 36.9 95 18 111/73 97 Room Air Departure Information Impression Primary Impression: Trigeminal neuralgia of right side of face Additional Impression: Chronic pain in face Dispostion Home / Self-Care Condition GOOD Prescriptions Amitriptyline Hcl (ELAVIL) 10 Mg Tab 1 TAB PO HS for 30 Days, #30 TAB Prov: Tammie Castro, IZABELLA 08/11/17 Referrals [facility] ([facility]P) Patient Instructions ED Chronic Pain Management, ED Neuralgia Trigeminal, My [facility] Additional Instructions You were seen in the ED for chronic pain. As discussed, the ED is not capable of treating chronic pain, and as you are a student here in [place], I do recommend you find a provider locally who can manage your symptoms long-term. You did advise that your surgeon in [place] would be starting you on amitriptyline for your chronic pain. I did send a short prescription to the pharmacy of this medication the you can start until you're able to get the prescription in 2 weeks. Please return to the emergency Department for intractable pain, fever, chills, nausea, vomiting, or other concerning symptoms. Please follow up with [facility] services or another local provider regarding chronic pain management prescriptions. Problem Qualifiers
[2017-08-11 16:34] VITALS: BP 111/72; PULSE 82; O2SAT 96
== END 2017-08-11 16:30 | disposition home or self-care (01) ==
LOC: C.EDB 15:34 → C.EDD 16:30
DX: G50.0 Trigeminal neuralgia (principal); G89.29 Other chronic pain; F32.9 Major depressive disorder, single episode, unspecified; F17.200 Nicotine dependence, unspecified, uncomplicated; Z88.8 Allergy status to other drugs, medicaments and biological substances; Z79.899 Other long term (current) drug therapy